=== PATIENT | female | born 1985 ===

== ENCOUNTER 2023-09-16 11:17 | Outpatient (REF) | payer MEDICAID, SELFPAY ==
--- NOTE | ~2023-09-16 | XR_ITS ---
EXAMINATION: XR KNEE, RIGHT XR KNEE, LEFT CLINICAL INFORMATION: Bilateral chronic knee pain. COMPARISON: None available. TECHNIQUE: 4 views of each knee. FINDINGS: Some small osteophytes are seen arising from the medial femoral condyle in the mid medial tibial plateau bilaterally. Knee joint spaces are well maintained aside from some minimal narrowing of the medial compartment on the left. Small knee joint effusions may be present. There is no evidence of chondrocalcinosis. No fractures. XR/XR knee LT 3V IMPRESSION: Mild degenerative changes in both knees as described above with mild narrowing of the medial compartment on the left.
--- NOTE | ~2023-09-16 | XR_ITS ---
EXAMINATION: XR KNEE, RIGHT XR KNEE, LEFT CLINICAL INFORMATION: Bilateral chronic knee pain. COMPARISON: None available. TECHNIQUE: 4 views of each knee. FINDINGS: Some small osteophytes are seen arising from the medial femoral condyle in the mid medial tibial plateau bilaterally. Knee joint spaces are well maintained aside from some minimal narrowing of the medial compartment on the left. Small knee joint effusions may be present. There is no evidence of chondrocalcinosis. No fractures. XR/XR knee RT 3V IMPRESSION: Mild degenerative changes in both knees as described above with mild narrowing of the medial compartment on the left.
[2023-09-16 13:27] LABS: Alanine Aminotransferase 26 U/L (0-31); Albumin Level 4.3 g/dL (3.5-5.0); Alkaline Phosphatase 116 U/L (39-117); Anion Gap 14 (12-20); Aspartate Amino Transferase 28 U/L (5-31); Bilirubin Total 0.3 mg/dL (0.0-1.0); Blood Urea Nitrogen 12 mg/dL (9-16); Carbon Dioxide 28 mmol/L (22-29); Chloride 105 mmol/L (96-108); Estimated Glomerular Filt Rate > 60; Glucose Random 90 mg/dL (60-115); Potassium 4.7 mmol/L (3.3-5.1); Sodium 142 mmol/L (135-145); Total Protein 8.8 g/dL (6.5-8.0)
[2023-09-17 08:01] LABS: ~HepC Num1 13.17 S/CO (0.00-0.79); ~Hepatitis C Antibody Reactive (Nonreactive)
[2023-09-23 07:38] LABS: HCV Log PCR <1.18 NOT DETECTED Log IU/mL (NOT DETECTED); HepC Viral Load <15 NOT DETECTED IU/mL (NOT DETECTED)
== END 2023-09-16 11:18 | disposition home or self-care (01) ==
LOC: HO.HHCL 11:17
PROVIDERS: Visit Provider Family Medicine
DX: M25.561 Pain in right knee (principal); M25.562 Pain in left knee; R76.8 Other specified abnormal immunological findings in serum; G89.29 Other chronic pain; R78.6 Finding of steroid agent in blood
CPT/HCPCS: 36415; 73562; 80053; 86803; 87522